=== PATIENT | male | born 1985 | race Caucasian/White ===

== ENCOUNTER 2018-11-11 16:45 | Emergency (ER) | payer OTHER ==
[~2018-11-11] VITALS: Ht 172.7 cm; Wt 77.3 kg
[2018-11-11 16:52] VITALS: Ht 172.7 cm; Wt 77.3 kg
[2018-11-11] MEDS ORDERED: PROZAC40 MG PO (16:53)
[2018-11-11] MEDS ORDERED: PERCOCET 5-3251 TAB PO (16:53)
[2018-11-11] MEDS ORDERED: ABILIFY2 MG PO (16:53)
[2018-11-11] MEDS ORDERED: KLONOPIN1 MG PO (16:54)
[2018-11-11 17:44] LABS: BASOPHILS 0.5 % (0-2); EOSINOPHILS 1.2 % (0-7); HEMATOCRIT 44.5 % (42.0-54.0); HEMOGLOBIN 15.5 g/dL (13.5-17.5); IMMATURE GRANULOCYTES 0.7 % (0-5); MCH 30.9 pg (26.0-34.0); MCHC 34.8 g/dL (31.0-37.0); MCV 88.6 fL (80.0-100.0); MEAN PLATELET VOLUME 8.9 fL (7.4-10.4); MONOCYTES 9.7 % (2-11); NEUTROPHILS 53.9 % (40-80); PLATELET COUNT 256 10x3/uL (130-400); RBC 5.02 10x6/uL (4.20-6.10); RDW 17.9 % (11.5-14.5); WBC 8.5 10x3/uL (4.8-10.8)
[2018-11-11 17:58] LABS: APTT 24.8 SECONDS (22.8-39.4); INR 1.05 (0.85-1.17); PROTIME 13.2 SECONDS (11.6-15.0)
[2018-11-11 18:05] LABS: ALBUMIN 3.8 g/dL (3.4-5.0); ALKALINE PHOSPHATASE 62 U/L (46-116); ALT (SGPT) 26 U/L (10-68); BILIRUBIN - TOTAL 0.46 mg/dL (0.2-1.3); CALC OSMOLALITY 273 mosm/kg (275-300); CALCIUM 8.6 mg/dL (8.5-10.1); CARBON DIOXIDE 26.4 mmol/L (21.0-32.0); CHLORIDE - SERUM 101 mmol/L (98-107); CREATININE - SERUM 0.9 mg/dL (0.6-1.3); GLUCOSE 113 mg/dL (74-106); PROTEIN - SERUM 7.3 g/dL (6.4-8.2); SODIUM 137 mmol/L (136-145); UREA NITROGEN 10 mg/dL (7-18); eGFR NON AFRICAN AMERICAN > 90 mL/min (90-120)
[2018-11-11 18:16] LABS: AMYLASE - SERUM 37 U/L (25-115); CKMB 0.6 U/L (0.0-3.6); CREATINE KINASE 130 UL (21-232); LIPASE 88 U/L (73-393); MAGNESIUM - SERUM 2.2 mg/dL (1.8-2.4)
[2018-11-11 18:18] LABS: TROPONIN-I < 0.017 ng/mL (0.000-0.060)
[2018-11-11] MEDS ORDERED: PROTONIX40 MG PO (19:31)
[2018-11-11 20:37] VITALS: BP 150/98
== END 2018-11-11 20:45 | disposition home or self-care (01) ==
LOC: D.ER 16:45
PROVIDERS: Family Medicine
DX: R07.9 Chest pain, unspecified (principal); K21.9 Gastro-esophageal reflux disease without esophagitis